=== PATIENT | female | born 1980 | race American Indian/Alaskan Native ===

== ENCOUNTER 2017-07-30 21:22 | Inpatient (IN) | payer OTHER ==
[2017-07-31 00:32] LABS: BUN/Creatinine Ratio 13.75; Blood Urea Nitrogen 11 mg/dL (7-17); Calcium 9.3 mg/dL (8.4-10.2); Carbon Dioxide 23 mmol/L (22-30); Chloride 103.1 mmol/L (98-107); Glucose 102 mg/dL (65-100); Potassium 4.4 mmol/L (3.6-5.0); Sodium 141 mmol/L (137-145)
[2017-07-31 00:42] LABS: Anion Gap 19 mmol/L
[2017-07-31 00:49] LABS: Basophils % (Auto) 0.5 % (0.0-1.8); Eosinophils % (Auto) 0.1 % (0.0-4.3); Mean Corpuscular HGB Conc 27 % (30-34); Platelet Count 499 K/mm3 (140-440); Red Blood Count 3.84 M/mm3 (3.65-5.03); White Blood Count 9.2 K/mm3 (4.5-11.0)
[2017-07-31 00:52] LABS: Hematocrit 20.8 % (30.3-42.9); Hemoglobin 5.7 gm/dl (10.1-14.3); Mean Corpuscular Hemoglobin 15 pg (28-32); Mean Corpuscular Volume 54 fl (79-97); Red Cell Distribution Width 20.1 % (13.2-15.2)
[2017-07-31 02:02] LABS: Bacteria,Urine 1+ /HPF (Negative); Bilirubin,Urine NEG (Negative); Blood,Urine NEG (Negative); Ketones,Urine TR mg/dL (Negative); Leukocyte Esterase,Urine NEG (Negative); Mucus,Urine 1+ /HPF; Nitrite,Urine POS (Negative); Protein,Urine <15 mg/dL mg/dL (Negative); Urobilinogen,Urine < 2.0 mg/dL (<2.0)
[2017-07-31] MEDS ORDERED: NACL 0.9% 500 ML 500 ML IV ONE (02:02)
[2017-07-31] MEDS ORDERED: NACL 0.9% 1000 ML 1,000 ML IV ONE (02:06)
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
[2017-07-31] MEDS ORDERED: TYLENOL PO PRN (03:30)
[2017-07-31] MEDS ORDERED: ZOFRAN IV PRN (03:30)
--- NOTE | 2017-07-31 05:08 | History and Physical Report ---
CHIEF COMPLAINT: Dizziness. HISTORY OF PRESENT ILLNESS: The patient is a 36-year-old female who said she has been having dizziness going on for some days associated with weakness and she also states she felt like she was going to pass out. The patient noted that she has been having heavy menstrual bleeding in the last few months and denied current bleeding at the time of presentation. Last menstrual period was 07/22/2017, which was heavy for about 2 to 3 days. There is no history of rectal bleeding or vomiting of blood. The patient also denies history of any vaginal bleeding at this time. The patient also noted that she is not taking any control pills and denied any history of abdominal pain or pelvic pain. PAST MEDICAL HISTORY: Pertinent for anemia. PAST SURGICAL HISTORY: Pertinent for cholecystectomy. FAMILY HISTORY: Noncontributory. SOCIAL HISTORY: The patient lives with family. Does not smoke, does not drink alcohol and does not use illicit drugs. MEDICATIONS: The patient is not on any medication. ALLERGIES: There are no known drug allergies. REVIEW OF SYSTEMS: CONSTITUTIONAL: There is no fever, no chills, no diaphoresis. HEENT: There is no headache or sore throat. CARDIOVASCULAR: There is no chest pain, orthopnea. RESPIRATORY: There is no shortness of breath or cough. GASTROINTESTINAL: There is no nausea, no vomiting, no abdominal pain, diarrhea or constipation. No hematemesis, no hematochezia or melena. NEUROLOGICAL SYSTEM: Dizziness present, near syncopal feeling present. MUSCULOSKELETAL SYSTEM: There is no joint pain or swelling. DERMATOLOGICAL SYSTEM: There is no skin rash or itching. GENITOURINARY: There is no dysuria, hematuria or flank pain. Rest of system review is normal. PHYSICAL EXAMINATION: GENERAL: At the time of exam, the patient was found to be alert, oriented x 3 and not in acute distress. VITAL SIGNS: Shows temperature of 97.9 degrees Fahrenheit, pulse of 94, respirations 18, blood pressure 129/67, O2 sat of 100% on room air. HEENT: Showed pupils to be equal, round, reactive to light and accommodating. Extraocular muscles are intact. NECK: Supple with no JVD or carotid bruit. CARDIOVASCULAR SYSTEM: Show first and second heart sounds with no gallops or murmur. RESPIRATORY: Showed good air entry on both sides of the lung with no abnormal breath sounds. GASTROINTESTINAL SYSTEM: Show abdomen to be full, soft, nontender with no organomegaly or rigidity. NEUROLOGICAL: Shows no focal deficit. MUSCULOSKELETAL: Show no joint swelling or tenderness. DERMATOLOGIC: Show no skin rash. GENITOURINARY: Showing no costovertebral angle tenderness. PERTINENT LABORATORY AND IMAGING STUDIES: The patient had a CBC done that shows normal white count with low hemoglobin of 5.7, low hematocrit of 20.8 and low MCV of 54 and high platelet count of 499. Also, MCHC is low with a value of 27 with high RDW of 20.1 all pointing to iron deficiency anemia. The patient's chemistry was unremarkable. Urinalysis was unremarkable. Urine test was negative. IMAGING STUDIES: There was no imaging studies done at this time. DIAGNOSES: 1. Symptomatic anemia. 2. Dizziness. 3. Near syncope. PLAN: The patient will be admitted to medical floor on telemetry. Patient will continue the order for blood transfusion given in the Emergency Room. The patient will have post-transfusion hemoglobin and hematocrit done, will be on Tylenol 650 mg by mouth every 4 hours and will also be on Zofran 4 mg IV every 8 hours for nausea and vomiting. The patient will be on oxygen by nasal cannula at 2 liter per minute. 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 JOB# [id number] [facility]
[2017-07-31 14:29] VITALS: BP 109/61
--- NOTE | 2017-07-31 16:01 | Discharge Summary ---
Providers - Providers Date of Admission: 07/31/17 03:28 Date of discharge: 07/31/17 Attending physician: DANIELLE YUN Primary care physician: ANTHONY REILLY MD Hospitalization Condition: Fair Disposition: DC-01 TO HOME OR SELFCARE - Discharge Diagnoses (1) Abnormal uterine bleeding Status: Acute (2) Symptomatic anemia Status: Acute Core Measure Documentation - Palliative Care Palliative Care/ Comfort Measures: Not Applicable Exam - Constitutional Vitals: Temp Pulse Resp BP Pulse Ox 98.4 F 62 16 109/61 100 07/31/17 12:39 07/31/17 12:39 07/31/17 12:39 07/31/17 12:39 07/31/17 07:54 Plan Activity: no restrictions Diet: regular Additional Instructions: 1.Follow up with PCP in 1 week. 2.Follow up with Dr. Lavell Bundy or Coal Grader of choice in 1 week to evaluate. Follow up with: PRIMARY CAREMD [Primary Care Provider] - 3-5 Days Prescriptions: Docusate Sodium [Colace] 100 mg PO BID #60 capsule Ferrous Sulfate [Feosol 325 MG tab] 325 mg PO BID #60 tablet
[2017-07-31 18:33] LABS: Hematocrit 32.1 % (30.3-42.9); Hemoglobin 9.6 gm/dl (10.1-14.3)
--- NOTE | 2017-08-01 08:37 | Ultrasound Report ---
ULTRASOUND PELVIC COMPLETE ULTRASOUND TRANSVAGINAL HISTORY: Abnormal uterine bleeding. TECHNIQUE: Transabdominal and transvaginal ultrasound with color and spectral doppler interrogation. The uterus is anteverted and measures 12.1 x 8.5 x 9.5 cm. There are 2 fundal fibroids measuring 4.0 cm and 7.4 cm. The endometrial stripe measures 11 mm. The right ovary measures 4.1 x 2.7 x 3.6 cm. A 1.8 cm cyst in the right ovary is identified. The left ovary is unremarkable and measures 3.9 x 1.7 x 3.9 cm. No pelvic fluid collection. IMPRESSION: Uterine fibroids as described. 1.8 cm right ovarian cyst.
== END 2017-07-31 20:00 | disposition home or self-care (01) | DRG 761 ==
LOC: ED 21:22 → 4A 07-31 03:28
PROVIDERS: ADMIT Internal Medicine; ATTEND Internal Medicine
PROC: 30233N1 Transfusion of Nonautologous Red Blood Cells into Peripheral Vein, Percutaneous Approach (ICD-10-PCS; principal; 2017-07-31)
DX: N93.9 Abnormal uterine and vaginal bleeding, unspecified (principal); D64.9 Anemia, unspecified; R55 Syncope and collapse; Z90.49 Acquired absence of other specified parts of digestive tract
CPT/HCPCS: 36415; 76830; 76856; 80048; 81001; 81025; 85018; 85025; 86850; 86900; 86901; 86920; 93005; 93010; 96360; 99285; J7030; J7040; P9016

== ENCOUNTER 2018-06-25 14:15 | Emergency (ER) | payer SELFPAY ==
[2018-06-25] MEDS ORDERED: CLEOCIN IM ONE (16:48)
[2018-06-25] MEDS ORDERED: XYLOCAINE 1% 20 mL INFILTRATI ONE (16:48)
[2018-06-25] MEDS ORDERED: NORCO 7.5/325 PO ONE (16:48)
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
[2018-06-25 18:16] VITALS: BP 117/63
== END 2018-06-25 18:21 | disposition home or self-care (01) ==
LOC: ED 14:15
DX: K04.7 Periapical abscess without sinus (principal); K05.00 Acute gingivitis, plaque induced; Z86.2 Personal history of diseases of the blood and blood-forming organs and certain disorders involving the immune mechanism
CPT/HCPCS: 96372

== ENCOUNTER 2019-07-21 09:15 | Observation (INO) | payer OTHER ==
[2019-07-21 10:09] LABS: Basophils # (Auto) 0.1 K/mm3 (0.0-0.1); Basophils % (Auto) 0.8 % (0.0-1.8); Eosinophils % (Auto) 0.3 % (0.0-4.3); Lymphocytes # (Auto) 2.1 K/mm3 (1.2-5.4); Lymphocytes % (Auto) 25.2 % (13.4-35.0); Mean Corpuscular HGB Conc 26 % (30-34); Monocytes # (Auto) 0.7 K/mm3 (0.0-0.8); Monocytes % (Auto) 7.9 % (0.0-7.3); Platelet Count 702 K/mm3 (140-440); Red Blood Count 3.57 M/mm3 (3.65-5.03)
[2019-07-21 10:13] LABS: Mean Corpuscular Volume 54 fl (79-97); Red Cell Distribution Width 21.1 % (13.2-15.2)
[2019-07-21 10:16] LABS: Hematocrit 19.1 % (30.3-42.9)
[2019-07-21 10:17] LABS: INR 1.07 (0.87-1.13)
[2019-07-21 10:22] LABS: BUN/Creatinine Ratio 13; Blood Urea Nitrogen 12 mg/dL (7-17); Calcium 9.2 mg/dL (8.4-10.2); Hemolysis Index 0
[2019-07-21 10:23] LABS: Bilirubin,Urine NEG (Negative); Blood,Urine LG (Negative); Color,Urine Yellow (Yellow); Mucus,Urine 3+ /HPF
[2019-07-21] MEDS ORDERED: NACL 0.9% 500 ML 500 ML IV ONE (10:28)
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
[2019-07-21] MEDS ORDERED: NACL 0.9% 500 ML 500 ML IV NR (12:24)
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
[2019-07-22 08:32] LABS: Hematocrit 29.9 % (30.3-42.9); Hemoglobin 9.1 gm/dl (10.1-14.3)
--- NOTE | 2019-07-22 12:42 | Discharge Summary ---
Providers - Providers Date of Admission: 07/21/19 10:45 Date of discharge: 07/22/19 Attending physician: EVELYN RODRIGUEZ Primary care physician: RAILROAD MECHANIC Hospitalization Condition: Stable Hospital course: Patient is a 38-year-old woman with a history of iron deficiency anemia with prior blood transfusion in the past who presents to [facility] ED with progressively severe worsening intermittent dizziness x 1 week associated with lightheadedness. malaise, fatigue and right sided headaches. The dizziness usually occurs with change in position, going from lying to sitting to standing position. She became concerned when her heart started racing and she became off balance. She denies any syncope or severe headache. Her menses started this weekend. Initially she denied heavy menstrual bleeding because she considers large blood clots multiple times a day as normal for her, usually on day #2 of her menses. Patient denies any chest pains, abdominal pain at this time. She does have some very light vaginal bleeding at this time. She does have THOMAS. She denies any fevers, chills, n/v. She is being admitted to observation because hemoglobin is 5.0 Discharge Diagnoses: Dizziness resolved after transfuse 3 units of PRBC Menorrhagia: Outpatient motion study engineer follow up Microcytic anemia, most likely iron deficiency due to heavy menses: treat with I patricia supplements Disposition: DC-01 TO HOME OR SELFCARE Time spent for discharge: 34 minutes Core Measure Documentation - Palliative Care Palliative Care/ Comfort Measures: Not Applicable - Core Measures Any of the following diagnoses?: none - VTE Discharge Requirements Deep Vein Thrombosis/Pulmonary Embolism Present on Admission: No Has pt received <5 days of overlap therapy or INR<2.0: No Anticoagulant overlap therapy prescribed at discharge: No Contraindication No Overlap Therapy order at DC: Not Indicated Exam - Physical Exam Narrative exam: Gen: WDWN, NAD, Awake, Alert, Orientated x 3 HEENT: NCAT, EOMI, PERRL, OP Clear Neck: supple, no adenopathy, no thyromegaly, no JVD CVS/Heart: RRR, normal S1S2, pulses present bilaterally Chest/Lungs: CTA B, Symmetrical chest expansion, good air entry bilaterally GI/Abdomen: soft, NTND, good bowel sounds, no guarding or rebound /Bladder: no suprapubic tenderness, no CVA or paraspinal tenderness Extermity/Skin: no c/c/e, no obvious rash MSK: FROM x 4 Neuro: CN 2-12 grossly intact, no new focal deficits Psych: calm - Constitutional Vitals: Temp Pulse Resp BP Pulse Ox 97.0 F L 75 16 112/69 99 07/22/19 06:09 07/22/19 06:09 07/22/19 06:09 07/22/19 06:09 07/22/19 06:09 Plan Activity: other (no strenous activity untill cleared by PCP) Diet: regular Follow up with: [facility] [Provider Group] - 7 Days ESTEFANY NGUYEN MD [Staff Physician] - 7 Days Prescriptions: Docusate Sodium [Colace] 100 mg PO BID #60 capsule Iron,Carb/Vit C/Vit B12/Folic [Fe C Plus Tablet] 1 each PO BID #60 tablet
[2019-07-22 12:50] VITALS: BP 113/58
== END 2019-07-22 15:14 | disposition home or self-care (01) ==
LOC: ED 09:15 → 3A 10:45
PROVIDERS: ADMIT Internal Medicine; ATTEND Internal Medicine
DX: D50.9 Iron deficiency anemia, unspecified (principal); R42 Dizziness and giddiness; Z90.49 Acquired absence of other specified parts of digestive tract
CPT/HCPCS: 36415; 36430; 80048; 81001; 84703; 85014; 85018; 85025; 85610; 85730; 86850; 86900; 86901; 86920; 99284; G0378; J7040; P9016